=== PATIENT | male | born 1965 | race Caucasian/White ===

== ENCOUNTER 2025-01-29 06:06 | Observation (INO) ==
--- NOTE | 2024-12-30 10:51 | PAT Medication Instructions ---
Medication Instructions Date of Service December 30, 2024 Home Medications omeprazole 20 mg capsule,delayed release 20 mg PO QAM alfuzosin 10 mg tablet,extended release 24 hr 10 mg PO HS amitriptyline 50 mg tablet 50 mg PO HS amlodipine 10 mg tablet 10 mg PO QAM aspirin 81 mg capsule 81 mg PO HS celecoxib 200 mg capsule (Celebrex) 200 mg PO BID cholecalciferol (vitamin D3) 50 mcg (2,000 unit) capsule (Vitamin D3) 50 mcg PO QAM diphenhydramine HCl 25 mg capsule (Benadryl) 25 mg PO QAM fluoxetine 20 mg capsule (Prozac) 20 mg PO QAM fluoxetine 40 mg capsule 40 mg PO QAM hydroxyzine pamoate 25 mg capsule (Vistaril) 25 mg PO HS levocetirizine 5 mg tablet 5 mg PO HS losartan 100 mg tablet 100 mg PO QAM pantoprazole 40 mg tablet,delayed release 40 mg PO BID propranolol 80 mg capsule,24 hr,extended release 80 mg PO QAM quetiapine 25 mg tablet (Seroquel) 37.5 mg PO HS simvastatin 10 mg tablet 10 mg PO QAM ASK your surgeon for instructions celecoxib 200 mg capsule (Celebrex) 200 mg PO BID ASK your prescriber and surgeon aspirin 81 mg capsule 81 mg PO HS DO NOT take the morning of surgery cholecalciferol (vitamin D3) 50 mcg (2,000 unit) capsule (Vitamin D3) 50 mcg PO QAM diphenhydramine HCl 25 mg capsule (Benadryl) 25 mg PO QAM losartan 100 mg tablet 100 mg PO QAM Take morning of surgery With a small sip of water, OTHERWISE NOTHING TO EAT OR DRINK AFTER MIDNIGHT: omeprazole 20 mg capsule,delayed release 20 mg PO QAM amlodipine 10 mg tablet 10 mg PO QAM fluoxetine 20 mg capsule (Prozac) 20 mg PO QAM fluoxetine 40 mg capsule 40 mg PO QAM pantoprazole 40 mg tablet,delayed release 40 mg PO BID propranolol 80 mg capsule,24 hr,extended release 80 mg PO QAM simvastatin 10 mg tablet 10 mg PO QAM Take evening before surgery alfuzosin 10 mg tablet,extended release 24 hr 10 mg PO HS amitriptyline 50 mg tablet 50 mg PO HS hydroxyzine pamoate 25 mg capsule (Vistaril) 25 mg PO HS levocetirizine 5 mg tablet 5 mg PO HS pantoprazole 40 mg tablet,delayed release 40 mg PO BID quetiapine 25 mg tablet (Seroquel) 37.5 mg PO HS Other Notes If you have any questions please call us at [phone] or [phone] or [phone] or [phone]
--- NOTE | 2025-01-05 12:55 | Anesthesiology Consultation ---
Date of Service January 05, 2025 Assessment & Plan (1) Encounter for pre-operative examination: - awaiting surgeon ordered medical clearance, Dr. Moira Escobar in [place] 01/07/25. Chart Review Chart Review: Pending: Refer to Additional Notes / Consult section and Patient seen in Pre Admission Testing Teaching & Discussion Pre-Anesthesia Teaching/Discussion Notes: Instructed NPO after midnight before surgery, except medications with 15 cc of water. Medication instructions provided according to the PAT guidelines. History Surgery Operation Date: 01/29/25 10:05 Proposed Procedures p C3-C4 Anterior Cervical Discectomy and Fusion - Juan Jose Marino DO Height/Weight Height: 5 ft 10 in Weight: 81.8 kg Allergies Allergy/AdvReac Type Severity Reaction Status Date / Time adhesive tape Allergy Mild skin Verified 12/29/24 14:30 irritation/rash Penicillins Allergy Unknown unsure/was Verified 12/29/24 14:30 a child hydrocodone [From Vicodin] AdvReac Intermediate severe Verified 12/29/24 14:30 headache methadone AdvReac Intermediate severe Verified 12/29/24 14:30 headache, nausea Medications Home Medications Medication Instructions Recorded Confirmed Last Taken omeprazole 20 mg capsule,delayed 20 mg PO QAM 07/18/18 12/29/24 Unknown release alfuzosin 10 mg tablet,extended 10 mg PO HS 12/29/24 12/29/24 Unknown release 24 hr amitriptyline 50 mg tablet 50 mg PO HS 12/29/24 12/29/24 Unknown amlodipine 10 mg tablet 10 mg PO QAM 12/29/24 12/29/24 Unknown aspirin 81 mg capsule 81 mg PO HS 12/29/24 12/29/24 Unknown celecoxib 200 mg capsule (Celebrex) 200 mg PO BID 12/29/24 12/29/24 Unknown cholecalciferol (vitamin D3) 50 50 mcg PO QAM 12/29/24 12/29/24 Unknown mcg (2,000 unit) capsule (Vitamin D3) diphenhydramine HCl 25 mg capsule 25 mg PO QAM 12/29/24 12/29/24 Unknown (Benadryl) fluoxetine 20 mg capsule (Prozac) 20 mg PO QAM 12/29/24 12/29/24 Unknown fluoxetine 40 mg capsule 40 mg PO QAM 12/29/24 12/29/24 Unknown hydroxyzine pamoate 25 mg capsule 25 mg PO HS 12/29/24 12/29/24 Unknown (Vistaril) levocetirizine 5 mg tablet 5 mg PO HS 12/29/24 12/29/24 Unknown losartan 100 mg tablet 100 mg PO QAM 12/29/24 12/29/24 Unknown pantoprazole 40 mg tablet,delayed 40 mg PO BID 12/29/24 12/29/24 Unknown release propranolol 80 mg capsule,24 80 mg PO QAM 12/29/24 12/29/24 Unknown hr,extended release quetiapine 25 mg tablet (Seroquel) 37.5 mg PO HS 12/29/24 12/29/24 Unknown simvastatin 10 mg tablet 10 mg PO QAM 12/29/24 12/29/24 Unknown Past Medical History Medical History (Updated 01/05/25 @ 16:05 by Kyleigh Acosta PA-C) Anxiety and depression Arthritis Bipolar disorder BPH (benign prostatic hyperplasia) Cardiac murmur no cardio, no record of echo Degenerative disc disease Fibromyalgia GERD (gastroesophageal reflux disease) controlled, stable per pt Hyperlipidemia Hypertension variable, stable per pt-monitoring with PCP Restless leg syndrome Spinal stenosis Patient denies h/o stroke, seizures, heart attack, heart failure, DM, blood clots/DVTs or blood transfusions. Exercise / Class Metabolic Activity II 4-5 Yardwork/Stairs/Walk up hill (denies chest discomfort or shortness of breath with one flight of stairs) Past Family History Family History Other No family history of adverse response to anesthesia Past Surgical History Surgical History H/O cervical discectomy (2017) History of anesthesia reaction woke up early with scopes History of cholecystectomy History of colonoscopy History of esophagogastroduodenoscopy (EGD) Past Anesthesia History No Family Hx of Anesthesia Complications and Other (awareness/woke up early with EGD/colonoscopy) History of PONV No Hx of PONV and No Hx of Motion Sickness Social History Smoking Status: Former smoker Do You Dip or Chew Tobacco: No Smoking End Date: 1999 Hx Alcohol Use: No Alcohol Intake Frequency Comment: quit 2001 Hx Substance Use: No substance use type: does not use Review of Systems Patient denies chest pain, shortness of breath, dyspnea on exertion, snoring, witnessed apneas, fever, chills, cough, wheezing, or palpitations. Physical Exam Vital Signs Vitals BP 138/78 P 56 TEMP 98.6 SP02 97% on RA RESP 17 Physical Patient resting comfortably in chair in no acute distress, alert and oriented, responding appropriately throughout visit Full cervical extension range of motion without pain TMD 3.5 finger breadths Mallampati Score 2 Dentition: intact, denies chipped or loose teeth, caps/crowns, implants or bridges Lungs: normal respiratory effort. Good air movement, clear throughout to auscultation, no adventitious breath sounds Cardiac: regular rate and rhythm, no murmurs noted Carotid arteries: negative bruit bilat Lab Results Anesthesia Preop Results Results Anesthesia Widget: WBC 7.80 K/ul (4.8-10.8) 01/05/25 Hgb 14.4 g/dl (14.0-18.0) 01/05/25 Hct 41.2 % (42.0-52.0) L 01/05/25 Plt 262 K/uL (130-400) 01/05/25 Na 137 mmol/L (136-145) 01/05/25 K 4.1 mmol/L (3.5-5.1) 01/05/25 Cl 107 mmol/L (98-107) 01/05/25 CO2 22 mmol/L (21-32) 01/05/25 BUN 21 mg/dl (6-23) 01/05/25 Creat 1.31 mg/dl (0.6-1.4) 01/05/25 Glucose Level 97 mg/dl (70-99(Fasting)) 01/05/25 PT 10.3 Seconds (9.0-12.0) 01/05/25 PTT 27 Seconds (21-31) 01/05/25 INR 0.9 (0.9-1.1) 01/05/25 Urine Color Yellow 01/05/25 Urine Appearance Clear (Clear) 01/05/25 Urine pH 6.5 (4.5-7.5) 01/05/25 Urine Specific [place] 1.005 (1.000-1.030) 01/05/25 Urine Protein Negative (Negative) 01/05/25 Urine Glucose (UA) Negative (Negative) 01/05/25 Urine Ketones Negative (Negative) 01/05/25 Urine Blood Negative (Negative) 01/05/25 Urine Nitrite Negative (Negative) 01/05/25 Urine Bilirubin Negative (Negative) 01/05/25 Urine Urobilinogen Negative (Negative) 01/05/25 Urine Leukocyte Esterase Negative (Negative) 01/05/25 Blood Type A Positive 01/05/25 Antibody Screen NEGATIVE 01/05/25 Testing Electrocardiogram Date: 01/05/25 Sinus bradycardia, rate 54 bpm Incomplete RBBB Chest X-Ray Date: 01/05/25 No acute findings.
[2025-01-29] MEDS: LR 15ML/HR IV SCH (06:33)
[2025-01-29] MEDS: VANCOMYCIN HCL 1,250 MG in SODIUM CHLORIDE 0.9% 250 ML IV SCH (06:33)
[2025-01-29] MEDS: LR 60ML/HR IV SCH (06:37)
[2025-01-29] MEDS: GABAPENTIN 600 MG DOSE PO SCH (06:48)
[2025-01-29] MEDS: ACETAMINOPHEN 500 MG TAB PO SCH (06:48)
[2025-01-29] MEDS: CeleBREX 200 MG CAP PO SCH (06:49)
[2025-01-29] MEDS ORDERED: ATROPINE SULFATE 0.1 MG/ML 10ML SYR IV PRN (06:59)
[2025-01-29] MEDS ORDERED: HYDROmorphone INJ 2 MG/ML SYR/VIAL IV PRN (06:59)
[2025-01-29] MEDS ORDERED: PROMETHAZINE HCL 6.25 MG in SODIUM CHLORIDE 0.9% 50 ML IV PRN (06:59)
[2025-01-29] MEDS ORDERED: HYDROmorphone INJ 1 MG/ML SYRINGE IV PRN ×2 (06:59→10:55)
[2025-01-29] MEDS ORDERED: ONDANSETRON INJ 2 MG/ML 2 ML VIAL IV PRN ×2 (06:59→10:55)
[2025-01-29] MEDS ORDERED: PROPOFOL IV EMULSION 10 MG/ML 20 ML VIAL IV ONE ×2 (07:07→08:20)
[2025-01-29] MEDS ORDERED: ROCURONIUM BROMIDE 10 MG/ML 5 ML VIAL IV ONE (07:07)
[2025-01-29] MEDS ORDERED: ONDANSETRON INJ 2 MG/ML 2 ML VIAL ONE (07:07)
[2025-01-29] MEDS ORDERED: LIDOCAINE 2% 2 ML VIAL/AMP(20MG/ML) INFIL ONE (07:07)
[2025-01-29] MEDS ORDERED: MIDAZOLAM HCL 1 MG/ML 2ML VIAL ONE (07:08)
[2025-01-29] MEDS ORDERED: DexMEDEtomidine HCL IV 100 MCG/ML VIAL IV ONE (07:08)
--- NOTE | 2025-01-29 07:40 | History & Physical Bridge Note ---
Date of Service January 29, 2025 History & Physical Bridge Note I have examined the patient, reviewed the History & Physical and in the interval since the performance of the History & Physical I have noted the following changes of clinical significance: no changes noted
--- NOTE | 2025-01-29 07:41 | History & Physical Report ---
Date of Service January 29, 2025 Assessment & Plan (1) Cervical spondylosis with radiculopathy: Plan: Anterior cervical discectomy and fusion C3-C4 History of Present Illness Chief Complaint: Neck and arm pain Primary Care Provider: Moira Cartagena MD This is a 59-year-old male who presents with chronic persistent neck and arm pain despite a course of nonoperative care here for surgical invention. Allergies Allergy/AdvReac Type Severity Reaction Status Date / Time adhesive tape Allergy Mild skin Verified 01/29/25 06:38 irritation/rash Penicillins Allergy Unknown unsure/was Verified 01/29/25 06:38 a child hydrocodone [From Vicodin] AdvReac Intermediate severe Verified 01/29/25 06:38 headache methadone AdvReac Intermediate severe Verified 01/29/25 06:38 headache, nausea Home Medications Medication Instructions Recorded Confirmed Type omeprazole 20 mg capsule,delayed 20 mg PO QAM 07/18/18 01/29/25 History release alfuzosin 10 mg tablet,extended 10 mg PO HS 12/29/24 01/29/25 History release 24 hr amitriptyline 50 mg tablet 50 mg PO HS 12/29/24 01/29/25 History amlodipine 10 mg tablet 10 mg PO QAM 12/29/24 01/29/25 History aspirin 81 mg capsule 81 mg PO HS 12/29/24 01/29/25 History celecoxib 200 mg capsule (Celebrex) 200 mg PO BID 12/29/24 01/29/25 History cholecalciferol (vitamin D3) 50 50 mcg PO QAM 12/29/24 01/29/25 History mcg (2,000 unit) capsule (Vitamin D3) diphenhydramine HCl 25 mg capsule 25 mg PO QAM 12/29/24 01/29/25 History (Benadryl) fluoxetine 20 mg capsule (Prozac) 20 mg PO QAM 12/29/24 01/29/25 History fluoxetine 40 mg capsule 40 mg PO QAM 12/29/24 01/29/25 History hydroxyzine pamoate 25 mg capsule 25 mg PO HS 12/29/24 01/29/25 History (Vistaril) levocetirizine 5 mg tablet 5 mg PO HS 12/29/24 01/29/25 History (Allergy Relief (levocetirizine)) losartan 100 mg tablet 100 mg PO QAM 12/29/24 01/29/25 History pantoprazole 40 mg tablet,delayed 40 mg PO BID 12/29/24 01/29/25 History release propranolol 80 mg capsule,24 80 mg PO QAM 12/29/24 01/29/25 History hr,extended release quetiapine 25 mg tablet (Seroquel) 37.5 mg PO HS 12/29/24 01/29/25 History simvastatin 10 mg tablet 10 mg PO QAM 12/29/24 01/29/25 History Past Med/Surg History Problem List (Updated 01/29/25 @ 07:41 by Juan Jose Marino DO) Cervical spondylosis with radiculopathy Encounter for pre-operative examination Sacroiliitis (Chronic) Lumbar facet joint syndrome (Chronic) GERD (gastroesophageal reflux disease) (Chronic) Lumbosacral neuritis (Chronic) Disc degeneration, lumbar (Chronic) Bilateral sacroiliitis (Chronic) Lumbago (Chronic) Depression (Chronic) Anxiety (Chronic) Hypercholesteremia (Chronic) HTN (hypertension) (Chronic) Medical History (Updated 01/29/25 @ 07:41 by Juan Jose Marino DO) Spinal stenosis Degenerative disc disease Fibromyalgia Arthritis BPH (benign prostatic hyperplasia) GERD (gastroesophageal reflux disease) controlled, stable per pt Bipolar disorder Anxiety and depression Restless leg syndrome Cardiac murmur no cardio, no record of echo Hypertension variable, stable per pt-monitoring with PCP Hyperlipidemia Surgical History History of anesthesia reaction woke up early with scopes H/O cervical discectomy (2016) History of esophagogastroduodenoscopy (EGD) History of colonoscopy History of cholecystectomy Family History Other No family history of adverse response to anesthesia Social History Smoking Status: Former smoker Tobacco Type: Cigarettes Smoking End Date: 1999; Second Hand Exposure: Yes; Do You Dip or Chew Tobacco: No; Hx Alcohol Use: No Hx Substance Use: No Preferred Language: Lithuanian Communication Ability: Effective Visual Impairment: Limited Hearing Ability: Normal Road Roller Operator Hot Mix Required: No Beliefs That Will Affect Care: None marital status: Current Living Situation: Significant Other current occupational status: disabled Feels Safe at Home: Yes Safety Concerns: Feels Safe At This Time Assistive Devices: Glasses Physical Exam Physical Exam: Patient alert and oriented Heart regular rhythm lungs clear Results & Data Results & Data Vital Signs (Past 12 Hours) Vital Signs Temp Pulse Resp BP Pulse Ox O2 Del Method 01/29/25 06:42 36.5 C 58 L 18 157/87 H 98 Room Air
[2025-01-29] MEDS ORDERED: KETAMINE HCL 10MG/ML SYR ONE (08:04)
[2025-01-29] MEDS ORDERED: HYDROmorphone INJ 2 MG/ML SYR/VIAL ONE (08:09)
[2025-01-29] MEDS ORDERED: DEXAMETHASONE SOD INJ 4 MG/ML VIAL ONE (08:20)
[2025-01-29] MEDS ORDERED: diphenhydrAMINE 50 MG/ML VIAL ONE (08:20)
[2025-01-29] MEDS: FLOSEAL HEMOSTATIC MATRIX 10ML TOP ONE (08:55)
[2025-01-29] MEDS: ceFAZolin 330 MG/ML 1 GM VIAL ONE (08:59)
[2025-01-29] MEDS ORDERED: SUGAMMADEX SODIUM 200 MG/2 ML VIAL IV ONE (09:00)
--- NOTE | 2025-01-29 09:11 | Operative Report ---
Post Operative Report Pre & Post Diagnosis Operation Date: 01/29/25 07:45 Pre-Op Diagnosis: Cervical spondylosis with radiculopathy Post-Op Diagnosis: Same I identified the patient and participated in the time-out.: Yes Procedure Operation Date: 01/29/25 07:45 Actual Procedures #1 anterior cervical discectomy with bilateral foraminotomies C3-C4. #2 an terior cervical arthrodesis C3-C4. #3 placement Spira 8 mm cage filled with os design bone graft C3-C4. #4 application of cage completed screws plus C3-C4. Surgeon Juan Jose Marino, Internal Grinder Tender Harpal Elizondo Estimated Blood Loss 10 Findings Consistent with Post-Op Diagnosis Specimens None Indications This is a 59-year-old male presents publish diagnosis of failed course of nonoperative care is here for surgical invention. Description of Procedure Patient was met with preoperatively case discussed all questions addressed. The patient was taken back to operative suite underwent sedation placed in spine position on the Anup table with the head Morris waiter/waitress head. All bony prominences well-padded eyes inspected to ensure no external pressure placed upon them. This point the anterior cervical spine was prepped and draped in a sterile fashion. With assistance of fluoroscopy I identified the C3-C4 to space and a transverse incision was placed on the right anterior aspect of the cervical spine overlying this region. Blunt dissection with the assistance of bipolar electrocautery performed down to and exposing the anterior cervical spine at C3-C4. Self-retaining retractors placed. I performed a complete discectomy of C3-C4 out to the uncovertebral joints bilaterally. Joiner distracting pins were utilized to assist in visualization. I removed all posterior annular fibers longitudinal ligament bilateral foraminotomies performed. Endplates burred to subcortical leading bone in the 8 mm spiral cage filled with os design bone graft tapped in position. Distracting apparatus was removed and a K2 M plate screws applied with the assistance of fluoroscopy. The incision was then copiously irrigated explored to ensure no damage to surrounding structures remaining bleeding. 10 round TRINA drain inserted. The incision was then closed with 2 Vicryl in the fashion of 4 Monocryl for final skin closure. Steri-Strips sterile dressing placed. Patient waken taken PACU stable condition. Please note spinal cord monitoring was utilized at the procedure no changes noted. Harpal wilhelm was present at the entire surgeon on the patient positioning complex portion of the surgery and final skin closure. Im ordering 10 grams of Collagen Powder (HCPCS A6010 Primary Dressing) and 10 bordered super absorbent (HCPCS A6196 Secondary Dressing) to treat an incision wound that was caused by a spine procedure. The incision is approximately 2 cm(W) x 4 cm(L) down to the spinal column and epidural space 2 cm (D) in size and is a full thickness wound showing no signs of infection. Collagen comes in 1 gram packets so 10 packets were ordered. Given the size of the wound, with moderate exudate I chose to order a 10 day supply. The patient will be provided instructions for proper application of the collagen wound kit. The patient will be asked to apply the collagen powder daily and then cover it with sterile dressings dispensed. Collagen was selected as I expect the collagen to attract monocytes and fibroblasts, act as a sacrificial substrate for MMPs, and ultimately proved a matrix for tissue and vessel growth. The collagen will act as a primary dressing in this scenario. It is medically necessary for proper healing of these wounds to improve bioavailability and contact with each wound s urface, this is also to help prevent infection of wounds and promote healing ultimately leading to a better healing outcome and limit the risk of infection. I attest to the content of the Intraoperative Record and any orders documented therein. Any exceptions are noted below.
--- NOTE | 2025-01-29 10:34 | Anesthesiology Progress Note ---
Date of Service January 29, 2025 Anesthesia Post Procedure Vital Signs Vital Signs: Temp Pulse Pulse Resp BP Pulse Ox O2 Del Method 01/29/25 10:30 36.4 C L 76 19 157/91 H 94 Nasal Cannula 01/29/25 10:20 68 17 144/79 H 94 Nasal Cannula 01/29/25 10:10 67 16 150/87 H 94 Nasal Cannula 01/29/25 10:00 66 19 163/86 H 93 Nasal Cannula 01/29/25 09:50 63 19 171/91 H 94 Nasal Cannula 01/29/25 09:40 67 22 147/81 H 90 Oxymask 01/29/25 09:30 77 20 167/89 H 96 Oxymask 01/29/25 09:24 36.0 C L 76 20 166/79 H 95 Oxymask 01/29/25 06:42 36.5 C 58 L 18 157/87 H 98 Room Air O2 Flow Rate 01/29/25 10:30 2 01/29/25 10:20 2 01/29/25 10:10 2 01/29/25 10:00 2 01/29/25 09:50 2 01/29/25 09:40 1 01/29/25 09:30 4 01/29/25 09:24 4 01/29/25 06:42 Pain Intensity Neck: Pain Intensity: 8 Transfer of Care Handoff Completed per policy Notes Mental Status: alert / awake / arousable Patient Amnestic to Procedure: Yes Nausea / Vomiting: adequately controlled Pain: adequately controlled Airway Patency, RR, SpO2: stable & adequate BP & HR: stable & adequate Hydration State: stable & adequate Anesthetic Complications: no major complications apparent and Pt Satisfied with anesthetic care
[2025-01-29] MEDS ORDERED: ACETAMINOPHEN 1,000 MG/100 ML VIAL IV PRN (10:55)
[2025-01-29] MEDS ORDERED: SOD PHOSPHATE/SOD BIPHOSPHATE ENEMA 132 ML BTL PR PRN (10:55)
[2025-01-29] MEDS ORDERED: DO NOT ADMINISTER FLU VACCINE PRN (10:55)
[2025-01-29] MEDS ORDERED: ALUMINUM/MAGNESIUM SUSP 30 ML UDC PO PRN (10:55)
[2025-01-29] MEDS ORDERED: dexAMETHasone 8 MG in SYRINGE 0 ML IV PRN (10:55)
[2025-01-29] MEDS ORDERED: RACEPINEPHRINE 2.25% NEBU SOLN 0.5 ML VIAL INH PRN (10:55)
[2025-01-29] MEDS ORDERED: diphenhydrAMINE Capsule 25 MG CAP PO PRN (10:55)
[2025-01-29] MEDS ORDERED: ONDANSETRON 4 MG OD TAB PO PRN (10:55)
[2025-01-29] MEDS ORDERED: NALOXONE HCL 0.4 MG/1 ML VIAL/CARP IV PRN (10:55)
[2025-01-29] MEDS ORDERED: MAGNESIUM HYDROXIDE SUSP 30 ML UDC PO PRN (10:55)
[2025-01-29] MEDS ORDERED: HYDROmorphone INJ 0.5 MG/0.5 ML SYR IV PRN (10:55)
[2025-01-29] MEDS ORDERED: DO NOT ADMINISTER PNEUMOCOCCAL VACCINE PRN (10:55)
[2025-01-29] MEDS ORDERED: LORazepam 0.5 MG TAB PO PRN (10:55)
[2025-01-29] MEDS ORDERED: FAMOTIDINE 20 MG TAB PO PRN (10:55)
[2025-01-29] MEDS ORDERED: METOCLOPRAMIDE HCL INJ 5 MG/ML 2 ML VIAL IV PRN (10:55)
[2025-01-29] MEDS ORDERED: PROMETHAZINE 12.5 MG/50.5 ML BAG IV PRN (10:55)
--- NOTE | 2025-01-29 11:47 | Fluoroscopy Report ---
FL cervical 2-3V CLINICAL HISTORY: C3-C4 ACDF COMPARISON STUDY: None FLUOROSCOPY TIME: 9 seconds FLUOROSCOPY IMAGES: 3 EXPOSURE DOSE: 0.6 mGy FINDINGS: Fluoroscopy was provided for C3-4 anterior fusion. IMPRESSION: Intraoperative fluoroscopy. ACT 112: Negative or not required by law. Electronically signed by: John Gallardo M.D. 01/29/2025 11:46 AM
[2025-01-29] MEDS: ACETAMINOPHEN 500 MG TAB PO PRN (13:49)
[2025-01-29] MEDS: AMITRIPTYLINE HCL 50 MG TAB PO SCH (20:50)
[2025-01-29] MEDS: CETIRIZINE HCL 10 MG TABLET PO SCH (20:51)
[2025-01-29] MEDS: ASPIRIN 81 MG ECTAB PO SCH (20:51)
[2025-01-29] MEDS: TAMSULOSIN HCL 0.4 MG CAP PO SCH (20:51)
[2025-01-29] MEDS: DOCUSATE SODIUM/SENNA 50/8.6MG TAB PO SCH (20:55)
[2025-01-30] MEDS: POLYETHYLENE (MIRALAX) 17 GM PACK PO SCH (05:43)
[2025-01-30] MEDS: CHOLECALCIFEROL 25 MCG (1000 UNITS) TAB PO SCH (08:16)
[2025-01-30] MEDS: LOSARTAN POTASSIUM 50 MG TAB PO SCH (08:17)
[2025-01-30] MEDS: SIMVASTATIN 10 MG TAB PO SCH (08:17)
[2025-01-30] MEDS: PROPRANOLOL HCL LA 80 MG CAPCR PO SCH (08:17)
[2025-01-30] MEDS: diphenhydrAMINE Capsule 25 MG CAP PO SCH (08:19)
--- NOTE | 2025-01-30 08:42 | Discharge Summary ---
Date of Service January 30, 2025 Admission HPI Per Admitting Provider This is a 59-year-old male who presents with chronic persistent neck and arm pain despite a course of nonoperative care here for surgical invention. Admission Exam (Per Admitting) Constitutional WD/WN, vitals as above Eyes normal visual miramontes by confrontation ENMT external ear and nose normal, oropharynx normal Neck normal visual inspection Respiratory normal respiratory effort Cardiovascular Extremities: normal capillary refill Gastrointestinal (Abdomen) Inspection/Auscultation: abdomen normal to inspection Musculoskeletal Spine: + limited cervical ROM and + pain with cervical ROM Extremities: extremities normal to inspection and strength 5/5 throughout Skin no rashes, warm and dry Neurologic normal touch/pain/proprioception and moves all extremities Psychiatric A+Ox3, euthymic affect Eye Contact: good eye contact Discharge Data Procedures Performed Operation Date: 01/29/25 07:45 Actual Procedures p C3-C4 Anterior Cervical Discectomy and Fusion(Not Applicable) - Juan Jose Marino DO Hospital Course (1) Cervical spondylosis with radiculopathy: Yoandy is being discharged home on postoperative day 1 status post ACDF C3-4. He has had an uneventful evening. Pain is controlled. Mild dysphagia. He is up and ambulatory around the room independently and voiding without issue. TRINA drain output last shift was 10 cc. Discharge Instructions ACTIVITY RECOMMENDATIONS: SELF CARE INSTRUCTIONS AFTER CERVICAL FUSIONS 1. No smoking. Smoking drastically decreases the chance of a solid fusion. 2. No bending, lifting more than 5 pounds, or twisting (roll like a log when turning in bed). 3. You may shower 3 days after surgery. Thoroughly dry wound. Do not soak in the tub. 4. Cervical collar: Must be worn at all times including sleeping. You may remove the brace only to bath, eat and if you are sitting in a recliner. 5. Please walk as much as you can for exercise. Gradually increase the distance that you walk as your endurance increases. 6. You may return to previous diet. SPECIAL CARE INSTRUCTIONS: VERY IMPORTANT TO READ AND REVIEW A. Do not take any anti-inflammatory medications (i.e. Indocin, Advil, Aspirin, Naprosyn, Aleve, Motrin, etc.) as these may inhibit the chance of a solid fusion. Tylenol is okay to take. B. Your surgical incision has been closed with a cosmetic suture under the skin that will dissolve in about 6 weeks. In 14 days, you can use a pair of clean scissors and cut the suture that is left outside of the skin at the ends of your incision. C. Complications are uncommon, but please contact us if you have any signs or symptoms of: 1. wound infection (fever higher than 102.5 degrees F, redness, separation of wound, drainage, or increasing pain from the incision) 2. blood clots in legs (pain, swelling, redness and warmth in legs) 3. urinary tract infection (fever higher than 102.5 degrees, burning upon urination or increased frequency of urination) 4. nerve problems (inability to walk on your toes or heels, numbness, loss of bowel or bladder control) 5. any other symptoms that concern you. D. Please call the office at if you have any concerns or questions about your operation or recovery. MANAGING PAIN AFTER SPINAL SURGERY 1. Narcotic medication is intended for short-term use and will be provided for surgical pain. Surgical pain usually lasts for a period of 4-6 weeks. Narcotic medication includes Percocet, Vicodin, Darvocet, Tylenol #3 or Lortab. 2. Longer-term pain is more appropriately treated with non-narcotic medication such as Tylenol ES. 3. Muscle spasm is not appropriately treated with narcotics. Muscle relaxers such as Soma, Flexeril or Skelaxin can be used along with Tylenol ES. 4. Remember that we all live with some "aches and pains". This is not unusual or uncommon after an injury or as we get older. 5. We will provide appropriate medication within the normal guidelines of their prescribed use. We will also be very cautious and aware of potential abuse and extended duration of patients' medication needs. 6. Please allow 2-3 days to process refills. Prescriptions will not be mailed but must be picked up at the office. FOLLOW UP VISIT: Keep your scheduled follow-up appointment. Any questions, please call the office at .
[2025-01-30 09:48] VITALS: BP 172/93; PULSE 80; RESP 18; TEMP 97.5; O2SAT 95
== END 2025-01-30 13:05 | disposition home or self-care (01) ==
LOC: ASU 06:06 → 3E 06:06